=== PATIENT | female | born 1965 ===

== ENCOUNTER 2018-04-12 11:58 | Emergency (ER) | payer MEDICAID ==
[2018-04-12 12:02] VITALS: BMI 27.3
--- NOTE | 2018-04-12 12:30 | ED PDOC ---
Arrival/HPI - General Chief Complaint: Back Pain Time Seen by Provider: 04/12/18 12:01 Historian: Patient - History of Present Illness Narrative History of Present Illness (Text): 04/12/18 12:18 52 year old female, whose past medical history includes hypertension and diabetes, who presents to the emergency department complaining of right sided rib pain with coughing and uri symptoms x 2 days. She reports some shortness of breath. Of note patient states she had pneumonia 4 months ago, and the presenting symptoms feel similar to prior pneumonia. 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 She denies current chest pain but reports that she gets chest pain when she coughs. She denies fevers, chills, dizziness, nausea, vomiting, diarrhea, back pain, neck pain, or any other complaint. 04/12/18 15:42 Time/Duration: 24 hours Symptom Course: Unchanged Activities at Onset: Light Context: Home Past Medical History - Provider Review Nursing Documentation Reviewed: Yes - Cardiac Hx Cardiac Disorders: Yes Hx Hypertension: Yes - Pulmonary Hx Respiratory Disorders: Yes Hx Pneumonia: Yes - Neurological Hx Neurological Disorder: Yes (developmental delays) - HEENT Hx HEENT Disorder: No - Renal Hx Renal Disorder: No - Endocrine/Metabolic Hx Endocrine Disorders: Yes Hx Diabetes Mellitus Type 2: Yes - Hematological/Oncological Hx Blood Disorders: No - Integumentary Hx Dermatological Disorder: No - Musculoskeletal/Rheumatological Hx Musculoskeletal Disorders: No - Gastrointestinal Hx Gastrointestinal Disorders: No - Genitourinary/Gynecological Hx Genitourinary Disorders: No - Psychiatric Hx Psychophysiologic Disorder: No Hx Substance Use: No - Surgical History Hx Orthopedic Surgery: Yes (L hip) Family/Social History - Physician Review Nursing Documentation Reviewed: Yes Family/Social History: Unknown Family HX Smoking Status: Never Smoked Hx Alcohol Use: Yes Frequency of alcohol use: Socially Hx Substance Use: No Allergies/Home Meds Allergies/Adverse Reactions: Allergies Unobtainable Allergy (Verified 04/12/18 12:00) Home Medications: Home Meds Medication Instructions Recorded Confirmed Losartan Potassium 50 mg PO DAILY 04/12/18 04/12/18 Metformin HCl [Glucophage] 500 mg PO BID 04/12/18 04/12/18 amLODIPine [Norvasc] 10 mg PO DAILY 04/12/18 04/12/18 Review of Systems - Review of Systems Constitutional: absent: Fevers Eyes: absent: Vision Changes ENT: absent: Sore Throat, Rhinorrhea Respiratory: SOB, Cough Cardiovascular: Other (R sided rib pain). absent: Chest Pain, Palpitations, Edema, Calf Pain, ARBOLEDA, Orthopnea, Syncope Gastrointestinal: absent: Abdominal Pain, Stool Changes, Constipation, Diarrhea, Nausea, Vomiting Genitourinary Female: absent: Dysuria Musculoskeletal: absent: Back Pain, Neck Pain Skin: absent: Rash Neurological: absent: Headache, Dizziness, Focal Weakness, Facial Droop, Disequilibrium Psychiatric: absent: Anxiety, Depression Physical Exam Vital Signs Reviewed: Yes Vital Signs Temp Pulse Resp BP Pulse Ox 04/12/18 12:14 98.3 F 83 18 167/86 H 98 Temperature: Afebrile Blood Pressure: Hypertensive Pulse: Regular Respiratory Rate: Normal Appearance: Positive for: Well-Appearing, Non-Toxic, Comfortable Pain Distress: None Mental Status: Positive for: Alert and Oriented X 3 - Systems Exam Head: Present: Atraumatic, Normocephalic Pupils: Present: PERRL Extroacular Muscles: Present: EOMI Conjunctiva: Present: Normal Mouth: Present: Moist Mucous Membranes Neck: Present: Normal Range of Motion Respiratory/Chest: Present: Other (coughing on exam). No: Respiratory Distress, Accessory Muscle Use Cardiovascular: Present: Regular Rate and Rhythm, Normal S1, S2. No: Murmurs Abdomen: No: Tenderness, Distention, Peritoneal Signs Back: Present: Normal Inspection Upper Extremity: Present: Normal Inspection. No: Cyanosis, Edema Lower Extremity: Present: Normal Inspection. No: Edema Neurological: Present: GCS=15, CN II-XII Intact, Speech Normal Skin: Present: Warm, Dry, Normal Color. No: Rashes Psychiatric: Present: Alert, Oriented x 3, Normal Insight, Normal Concentration Medical Decision Making ED Course and Treatment: 04/12/18 12:18 Impression: 52 year old female who presents to the emergency department with complaints of coughing and R sided rib pain. Exam consistent with uri but will r/o pneumonia. Outside window for tamiflu. Plan: -- VBG -- EKG -- Cardiac Enzymes -- Labs -- PA/ LAT Chest X-Ray -- Toradol -- UA -- Reassess and disposition Progress Notes: 04/12/18 13:18 EKG shows NSR at 79bpm with normal intervals and no st changes 04/12/18 14:06 Chest X-ray reviewed, shows: FINDINGS: LUNGS:There appears to be some minor bibasilar atelectasis left greater than right. Follow-up radiographs at interval could be performed to exclude developing left lower lobe infiltrate. PLEURA: No significant pleural effusion identified. No pneumothorax apparent. CARDIOVASCULAR:No significant aortic atherosclerotic calcification present. Normal cardiac size. No pulmonary vascular congestion. 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 OTHER FINDINGS:None. IMPRESSION: Minor bibasilar atelectasis left greater than right. Follow-up radiographs at interval could be performed to exclude developing left lower lobe infiltrate. 04/12/18 15:15 UA negative. Labs reviewed and instructed to follow-up for elevated bilirubin. No abdominal tenderness or RUQ pain. R sided rib pain resolved after toradol. 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 I have reviewed the chart and agree that the record accurately reflects my personal performance of the history, physical exam, medical decision making, and the department course for this patient. I have also personally directed, reviewed, and agree with the discharge instructions and disposition. Disposition/Present on Arrival - Present on Arrival Any Indicators Present on Arrival: No History of DVT/PE: No History of Uncontrolled Diabetes: No Urinary Catheter: No History of Decub. Ulcer: No History Surgical Site Infection Following: None - Disposition Have Diagnosis and Disposition been Completed?: Yes Diagnosis: Elevated bilirubin, Pneumonia Disposition: HOME/ ROUTINE Disposition Time: 15:16 Patient Plan: Discharge Patient Problems: Current Active Problems Problem Status Onset Elevated bilirubin Acute Pneumonia Acute Condition: GOOD Discharge Instructions (ExitCare): Pneumonia in Adults, Community-Acquired Pneumonia, Adult (DC) Additional Instructions: Follow-up with PMD for abnormal labs. Return to ED if condition worsens. Take full course of antibiotics. Prescriptions: Azithromycin 250 mg PO DAILY #4 tablet Benzonatate [Tessalon Perles] 100 mg PO TID PRN #30 sgl PRN Reason: Cough Referrals: PCP,NO [Primary Care Provider] - Follow up with primary Forms: [facility] ([place]ib[place]ian), WORK NOTE
[2018-04-12 13:30] LABS: BASO # 0.02 K/mm3 (0.0-2.0); BASO % 0.3 % (0.0-3.0); EOS # 0.3 (0.0-0.7); EOS % 3.9 % (1.5-5.0); GRAN # 4.39 (1.4-6.5); GRAN % 55.4 % (50.0-68.0); HEMOGLOBIN 13.5 g/dL (12.0-16.0); LYMPH # 2.7 (1.2-3.4); LYMPH % 33.5 % (22.0-35.0); MEAN CELL VOLUME 78.8 fl (80.0-105.0); MEAN CORPUSCULAR HEMOGLOBIN 26.5 pg (25.0-35.0); MEAN CORPUSCULAR HGB CONC 33.7 g/dl (31.0-37.0); MEAN PLATELET VOLUME 10.2 fl (7.0-11.0); MONO # 0.6 (0.1-0.6); MONO % 6.9 % (1.0-6.0); RBC 5.09 10^6/uL (3.5-6.1); RED CELL DISTRIBUTION WIDTH 13.6 % (11.5-14.5); WHITE BLOOD COUNT 7.9 10^3/uL (4.5-11.0)
[2018-04-12 13:38] LABS: ALB/GLOB RATIO 1.3 (1.1-1.8); ALBUMIN 4.7 g/dL (3.0-4.8); ALT/SGPT 32 U/L (7-56); AST/SGOT 35 U/L (14-36); BLOOD UREA NITROGEN 19 mg/dL (7-21); CALCIUM 9.5 mg/dL (8.4-10.5); GFR NON-AFRICAN AMERICAN > 60
[2018-04-12 13:48] LABS: TROPONIN I < 0.01 ng/mL
[2018-04-12 13:53] VITALS: RESP 16
[2018-04-12] MEDS ORDERED: Sodium Chloride 0.9% 500 ML IV STA (13:55)
--- NOTE | 2018-04-12 14:03 | RAD ---
Date of service: 04/12/2018 HISTORY: cough COMPARISON: No prior. TECHNIQUE: Chest PA and lateral FINDINGS: LUNGS: There appears to be some minor bibasilar atelectasis left greater than right. Follow-up radiographs at interval could be performed to exclude developing left lower lobe infiltrate. PLEURA: No significant pleural effusion identified. No pneumothorax apparent. CARDIOVASCULAR: No significant aortic atherosclerotic calcification present. Normal cardiac size. No pulmonary vascular congestion. OSSEOUS STRUCTURES: Multilevel degenerative spondylosis of the thoracic spine VISUALIZED UPPER ABDOMEN: Normal. OTHER FINDINGS: None. IMPRESSION: Minor bibasilar atelectasis left greater than right. Follow-up radiographs at interval could be performed to exclude developing left lower lobe infiltrate.
[2018-04-12 14:17] LABS: VENOUS BLOOD GAS BASE EXCESS 1.5 mmol/L (0.0-2.0); VENOUS BLOOD GAS PO2 162 mm/Hg (30-55); VENOUS BLOOD PH 7.47 (7.32-7.43)
[2018-04-12 15:04] LABS: URINE BILIRUBIN NEGATIVE (NEGATIVE); URINE BLOOD NEGATIVE (NEGATIVE); URINE GLUCOSE (UA) NEGATIVE (NEGATIVE); URINE LEUKOCYTE ESTERASE NEGATIVE Leu/uL (NEGATIVE); URINE PROTEIN NEGATIVE mg/dL (<30 mg/dL); URINE UROBILINOGEN 0.2 E.U./dL (<1 E.U./dL)
[2018-04-12 15:07] LABS: URINE APPEARANCE CLEAR (CLEAR); URINE COLOR YELLOW (YELLOW)
[2018-04-12 15:56] VITALS: BP 135/59; PULSE 70; TEMP 98.2; O2SAT 99
--- NOTE | 2018-04-12 19:48 | CARD ---
APPROVED REPORT Date of service: 04/12/2018 EKG Measurement Heart [id number] [id number] <Conclusion> Normal sinus rhythm Normal ECG
== END 2018-04-12 15:57 | disposition home or self-care (01) ==
LOC: ED 11:58
DX: J18.9 Pneumonia, unspecified organism (principal); R17 Unspecified jaundice; E11.9 Type 2 diabetes mellitus without complications; I10 Essential (primary) hypertension
CPT/HCPCS: 71046; 80053; 81003; 82803; 84484; 85025; 93005; 96374; 99284; J1885; J7040